=== PATIENT | male | born 1980 | race Caucasian/White ===

== ENCOUNTER 2019-06-16 05:59 | Day surgery (SDC) | payer OTHER ==
[~2019-06-16 05:59] MED LIST: ALTACE5 MG PO
[2019-06-16] MEDS ORDERED: PERCOCET 5-3251 EACH PO (09:44)
[2019-06-16] MEDS ORDERED: COLACE100 MG PO (09:45)
[2019-06-16] MEDS ORDERED: NEURONTIN300 MG PO (09:45)
== END 2019-06-16 11:15 | disposition home or self-care (01) ==
LOC: CIR.AMB 05:59 → ADM 10:30 → CIR.AMB 11:15
DX: K40.91 Unilateral inguinal hernia, without obstruction or gangrene, recurrent (principal)